=== PATIENT | female | born 1970 | race Caucasian/White ===

== ENCOUNTER 2021-07-10 03:41 | Emergency (ER) | payer BC ==
[~2021-07-10] VITALS: Ht 172.7 cm; Wt 62.1 kg
[2021-07-10 03:50] VITALS: BP_SYST 117
[2021-07-10] MEDS ORDERED: ONDANSETRON HCL 4 MG/2 ML VIAL IVP ONE ×2 (04:15→04:30)
[2021-07-10] MEDS ORDERED: NACL 0.9% 1,000 ML IV ONE (04:15)
[2021-07-10] MEDS ORDERED: MECLIZINE HCL 25 MG TABLET (ANITVERT) PO ONE (04:30)
[2021-07-10 04:42] LABS: BASOPHILS # (AUTO) 0.1 K/uL (0.0-0.2); BASOPHILS % (AUTO) 1.2 % (0.0-2.0); EOSINOPHILS # (AUTO) 0.1 K/uL (0.0-0.4); EOSINOPHILS % (AUTO) 2.7 % (0.0-4.0); HEMATOCRIT 39.4 % (36-48); HEMOGLOBIN 13.1 g/dL (12.0-16.0); LYMPHOCYTES # (AUTO) 2.1 K/uL (1.0-5.5); MEAN CORPUSCULAR HEMOGLOBIN 28 pg (27-31); MEAN CORPUSCULAR HGB CONC 33 % (32-36); MEAN CORPUSCULAR VOLUME 85 fL (79.0-98.0); MONOCYTES # (AUTO) 0.3 K/uL (0.0-1.0); MONOCYTES % (AUTO) 6.4 % (1.7-9.3); NEUTROPHILS # (AUTO) 2.2 K/uL (1.8-7.7); NEUTROPHILS % (AUTO) 45.7 % (40.0-70.0); PLATELET COUNT (AUTO) 238 K/uL (130-430); RED BLOOD CELL COUNT(AUTO) 4.64 MIL/uL (4.2-6.2); RED CELL DISTRIBUTION WIDTH 13.8 % (9.0-15.0); WHITE BLOOD COUNT (AUTO) 4.9 K/uL (4.8-10.8)
[2021-07-10 04:49] LABS: CALCIUM 9.2 mg/dL (8.4-11.0); CREATININE 0.78 mg/dL (0.55-1.30); POTASSIUM 3.3 mmol/L (3.5-5.1)
[2021-07-10 04:54] LABS: TOTAL BILIRUBIN 0.2 mg/dL (0.0-1.0)
[2021-07-10 05:39] LABS: BILIRUBIN,URINE NEGATIVE (NEGATIVE); BLOOD, URINE NEGATIVE (NEGATIVE); COLOR,URINE YELLOW (YELLOW); GLUCOSE,URINE NEGATIVE (NEGATIVE); KETONES,URINE NEGATIVE (NEGATIVE); LEUKOCYTE ESTERASE ,URINE NEGATIVE (NEGATIVE); NITRITE, URINE NEGATIVE (NEGATIVE); PROTEIN URINE NEGATIVE (NEGATIVE); UROBILINOGEN,URINE 0.2 (0.2-1.0)
[2021-07-10 05:49] LABS: CLARITY/URINE CLOUDY (CLEAR)
[2021-07-10] MEDS ORDERED: MECL-109 PO (06:34)
[2021-07-10] MEDS ORDERED: ONDA-8 TL (06:35)
[2021-07-10 06:47] VITALS: BP_SYST 117
== END 2021-07-10 06:47 | disposition home or self-care (01) ==
LOC: SED 03:41
DX: R42 Dizziness and giddiness (principal); R11.2 Nausea with vomiting, unspecified
CPT/HCPCS: 36415; 70450; 76376; 80053; 81003; 83690; 85025; 93005; 96361; 96374; 99285; J2405; J7030; J8597